=== PATIENT | female | born 1985 | race Caucasian/White ===

== ENCOUNTER 2019-02-20 11:25 | Emergency (ER) | payer MEDICAID ==
[~2019-02-20] VITALS: Ht 165.1 cm; Wt 68.2 kg
[2019-02-20 11:27] VITALS: Ht 165.1 cm; Wt 68.2 kg
[2019-02-20] MEDS ORDERED: ALBUTEROL SULF8.5 GM INH (12:24)
[2019-02-20] MEDS ORDERED: DOXYCYCLINE HY100 M2 PO (12:24)
[2019-02-20 12:49] VITALS: BP 99/57
== END 2019-02-20 12:50 | disposition home or self-care (01) ==
LOC: D.ER 11:25
DX: J06.9 Acute upper respiratory infection, unspecified (principal); J40 Bronchitis, not specified as acute or chronic